=== PATIENT | female | born 2000 | race American Indian/Alaskan Native ===

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

== ENCOUNTER 2019-01-02 13:17 | Emergency (ER) | payer MEDICAID ==
--- NOTE | 2019-01-02 13:48 | EDM.PDOC ---
ED HPI GENERAL MEDICAL PROBLEM - General Chief Complaint: Abdominal Pain Stated Complaint: SURGERY COMPLICATIONS Time Seen by Provider: 01/02/19 13:48 Source of Information: Reports: Patient History Limitations: Reports: No Limitations Right Upper Abdomen Pain Score (Numeric/FACES): 6 - Related Data Allergies Allergy/AdvReac Type Severity Reaction Status Date / Time amoxicillin trihydrate Allergy Unknown Rash Verified 01/02/19 13:44 [From Augmentin] Penicillins Allergy Unknown Rash Verified 01/02/19 13:44 Sulfa (Sulfonamide Allergy Cannot Verified 01/02/19 13:44 Antibiotics) Remember Home Meds: Home Meds Acetaminophen/HYDROcodone [[place] 325-5 MG] 2 tab PO Q4H PRN #30 tablet 12/27/18 [Rx] Docusate Sodium [Colace] 100 mg PO BID cap 12/27/18 [Rx] Past Medical History Gastrointestinal History: Reports: Cholelithiasis Genitourinary History: Reports: UTI, Recurrent, Other (See Below) Other Genitourinary History: L KIDNEY REPA[employer] History: Reports: Musculoskeletal History: Reports: Fracture, Other (See Below) Other Musculoskeletal History: Fx right color bone Neurological History: Reports: Concussion Psychiatric History: Reports: Anxiety, Panic Attack, Suicide Attempt Hematologic History: Reports: Blood Transfusion(s) Dermatologic History: Reports: None - Infectious Disease History Infectious Disease History: Reports: Chicken Pox - Past Surgical History GI Surgical History: Reports: Cholecystectomy Female Surgical History: Reports: Other (See Below) Other Female Surgeries/Procedures: Surgery on kidney Social & Family History - Family History Family Medical History: Noncontributory - Tobacco Use Smoking Status *Q: Never Smoker Second Hand Smoke Exposure: No - Caffeine Use Caffeine Use: Reports: None - Recreational Drug Use Recreational Drug Use: Yes Recreational Drug Type: Reports: Marijuana/Hashish Recreational Drug Use Frequency: Socially ED ROS GENERAL - Review of Systems Review Of Systems: See Below Constitutional: Reports: Decreased Appetite HEENT: Reports: No Symptoms Respiratory: Reports: No Symptoms Cardiovascular: Reports: No Symptoms Endocrine: Reports: No Symptoms GI/Abdominal: Reports: Abdominal Pain, Other (pt had her GB out about 1 week ago. ) : Reports: No Symptoms Musculoskeletal: Reports: No Symptoms Skin: Reports: No Symptoms Neurological: Reports: No Symptoms ED EXAM, GI/ABD - Physical Exam Exam: See Below Text/Narrative:: pt arrived stating that she thinks she ate something she should not have eatwn. She did vomit this Am and now she is having upper abdomanal pain. She does not have any pain meds. Exam Limited By: No Limitations General Appearance: Alert, Anxious, Moderate Distress Ears: Normal TMs Nose: Normal Inspection Throat/Mouth: Normal Inspection Head: Atraumatic Neck: Normal Inspection Respiratory/Chest: No Respiratory Distress Cardiovascular: Regular Rate, Rhythm GI/Abdominal Exam: Other ( wounds look good. She is tender in the upper abdoman. ) (Female) Exam: Deferred Rectal (Female) Exam: Deferred Back Exam: Normal Inspection Extremities: Normal Inspection Neurological: Alert, Oriented, Normal Cognition Psychiatric: Normal Affect Course - Vital Signs Last Recorded V/S: Last Vital Signs Temp 34.9 C L 01/02/19 13:48 Pulse 82 01/02/19 13:48 Resp 16 01/02/19 13:48 BP 135/85 01/02/19 13:48 Pulse Ox 99 01/02/19 13:48 - Orders/Labs/Meds Labs: Laboratory Tests 01/02/19 01/02/19 01/02/19 Range/Units 14:03 14:03 14:37 WBC 10.0 (4.5-11.0) K/uL RBC 4.94 (3.30-5.50) M/uL Hgb 12.6 (12.0-15.0) g/dL Hct 39.2 (36.0-48.0) % MCV 79 L (80-98) fL MCH 26 L (27-31) pg MCHC 32 (32-36) % Plt Count 425 H (150-400) K/uL Neut % (Auto) 66 (36-66) % Lymph % (Auto) 23 L (24-44) % [place] % (Auto) 8 H (2-6) % Eos % (Auto) 3 (2-4) % Baso % (Auto) 1 (0-1) % Sodium 138 L (140-148) mmol/L Potassium 4.0 (3.6-5.2) mmol/L Chloride 102 (100-108) mmol/L Carbon Dioxide 26 (21-32) mmol/L Anion Gap 14.0 (5.0-14.0) mmol/L BUN 10 (7-18) mg/dL Creatinine 0.7 (0.6-1.0) mg/dL Est Cr Clr Drug Dosing 106.93 mL/min Estimated GFR (MDRD) > 60 (>60) Glucose 93 (74-106) mg/dL Calcium 9.7 (8.5-10.1) mg/dL Total Bilirubin 0.2 (0.2-1.0) mg/dL AST 24 (15-37) U/L ALT 72 (12-78) U/L Alkaline Phosphatase 95 (46-116) U/L Total Protein 8.1 (6.4-8.2) g/dL Albumin 3.7 (3.4-5.0) g/dL Globulin 4.4 H (2.3-3.5) g/dL Albumin/Globulin Ratio 0.8 L (1.2-2.2) Urine Color Yellow Urine Appearance Clear Urine pH 6.0 (4.5-8.0) Ur Specific [place] 1.015 (1.008-1.030) Urine Protein Trace (NEGATIVE) mg/dL Urine Glucose (UA) Normal (NEGATIVE) mg/dL Urine Ketones Negative (NEGATIVE) mg/dL Urine Occult Blood Negative (NEGATIVE) Urine Nitrite Negative (NEGATIVE) Urine Bilirubin Negative (NEGATIVE) Urine Urobilinogen Normal (NORMAL) mg/dL Ur Leukocyte Esterase Negative (NEGATIVE) Urine RBC Not seen (0-5) Urine WBC 0-5 (0-5) Ur Epithelial Cells Few Amorphous Sediment Not seen Urine Bacteria Rare Urine Mucus Not seen Meds: Medications Discontinued Medications Generic Name Dose Route Start Last Admin Trade Name Freq PRN Reason Stop Dose Admin Hydrocodone Bitart/Acetaminophen 1 tab 01/02/19 14:28 01/02/19 14:35 [place] 325-5 Mg PO 01/02/19 14:29 1 tab ONETIME ONE Administration Ondansetron HCl 4 mg 01/02/19 14:29 01/02/19 14:35 Zofran Odt PO 01/02/19 14:30 4 mg ONETIME ONE Administration - Re-Assessments/Exams Free Text/Narrative Re-Assessment/Exam: 01/06/19 07:21 pt was found to have normal lab work. She continued to appear fairly comfortable. Departure - Departure Time of Disposition: 14:55 Disposition: Home, Self-Care 01 Condition: Fair Clinical Impression: Vomiting, Status post cholecystectomy - Discharge Information Instructions: Nausea and Vomiting, Adult, Pain Medicine Instructions, Easy-to- Read Referrals: PCP,None [Primary Care Provider] - Forms: ED Department Discharge Care Plan Goals: zoforan subling 4mg q6h, norco 5/325 q6h prn for pain #8, see regular provider or her surgeon if persistent problems.
[2019-01-02 13:49] VITALS: BP 135/85
[2019-01-02] MEDS ORDERED: Acetaminophen/HYDROcodone 325-5 MG Tab PO ONE (14:28)
[2019-01-02] MEDS ORDERED: Ondansetron 4 MG Tab.DIS PO ONE (14:29)
== END 2019-01-02 14:59 | disposition home or self-care (01) ==
LOC: JP.ED 13:17
DX: R11.10 Vomiting, unspecified (principal); Z88.1 Allergy status to other antibiotic agents; Z88.2 Allergy status to sulfonamides; Z90.49 Acquired absence of other specified parts of digestive tract
CPT/HCPCS: 36415; 80053; 81001; 85025; 99284; A9270